=== PATIENT | female | born 1985 | race Caucasian/White ===

== ENCOUNTER 2016-06-05 04:51 | Emergency (ER) | payer MEDICAID ==
[~2016-06-05] VITALS: Ht 157.5 cm; Wt 53.0 kg
[2016-06-05 04:57] VITALS: Ht 157.5 cm; Wt 53.0 kg
[2016-06-05] MEDS ORDERED: SOD CHLORIDE 0.9% 1,000 ML IV STA (06:54)
[2016-06-05] MEDS ORDERED: CLINDAMYCIN 600 MG/D5W (PMX) 50 ML IVPB SCH (07:00)
[2016-06-05 07:33] LABS: BASOPHIL # 0.2 10^3/ul (0.0-0.1); BASOPHILS % 1.1 % (0.0-2.0); EOSINOPHILS # 0.3 10^3/ul (0.0-0.5); EOSINOPHILS % 1.5 % (0.0-7.0); HEMATOCRIT 40.4 % (37.0-47.0); HEMOGLOBIN 13.5 g/dl (12.0-16.0); LYMPHOCYTES # 1.2 10^3/ul (0.8-2.9); LYMPHOCYTES % 6.1 % (15.0-51.0); MEAN CORPUSCULAR HEMOGLOBIN 28.5 pg (29.0-33.0); MEAN CORPUSCULAR HGB CONC 33.4 g/dl (32.0-37.0); MEAN CORPUSCULAR VOLUME 85.3 fl (82.0-101.0); MEAN PLATELET VOLUME 7.8 fl (7.4-10.4); NEUTROPHIL # 16.7 10^3/ul (1.6-7.5); NEUTROPHILS % 86.3 % (39.0-77.0); PLATELET COUNT 299 10^3/UL (140-440); RED BLOOD COUNT 4.73 10^6/ul (4.20-5.40); RED CELL DISTRIBUTION WIDTH 13.7 % (11.5-14.5); UNCORRECTED WBC 19.4 10^3/ul (4.8-10.8); WHITE BLOOD COUNT 19.4 10^3/ul (4.8-10.8)
[2016-06-05 07:38] LABS: CONDITION 1; SUSPECT 1
[2016-06-05 07:39] LABS: LH ANALYZER COMMENTS 1
[2016-06-05 07:40] LABS: ALBUMIN 3.9 g/dl (3.3-4.9); POTASSIUM 4.6 mmol/L (3.5-5.1)
[2016-06-05 07:42] LABS: CREATININE 0.74 mg/dl (0.44-1.00)
[2016-06-05 07:43] LABS: ALBUMIN/GLOBULIN RATIO 1.14; CALCIUM 8.9 mg/dl (8.4-10.2); TOTAL PROTEIN 7.3 g/dl (6.1-8.1)
[2016-06-05 07:55] LABS: URINE BLOOD (Dip) POC Negative (NEGATIVE)
[2016-06-05] MEDS ORDERED: IOHEXOL 300MG/ML 150 ML BTL ONE (07:56)
[2016-06-05] MEDS ORDERED: SOD CHLORIDE 0.9% 100 ML ONE (07:56)
--- NOTE | 2016-06-05 08:34 | RADRPT ---
PROCEDURE: CT facial bones with contrast CLINICAL INDICATION: Abscess, pain TECHNIQUE: A CT of the facial bones was performed on a multidetector CT scanner utilizing thin axi al images after the intravenous administration of 100 cc Isovue contrast. No reported complication. Sagittal and coronal reconstructions were provided. The CTDIvol is 54 mGy and the DLP is 1080mGy- cm. One or more of the following dose reduction techniques were used: Automated exposure control, Ad justment of the mA and/or kV according to patient size, and/or use of iterative reconstruction techn ique. COMPARISON: None available. FINDINGS: Left malar and buccal space inflammatory stranding. There is associated thickening of the left platy sma. No well-defined, drainable rim enhancing fluid collection identified. Multiple enlarged left s ubmandibular space and left upper cervical lymph nodes are identified and likely reactive. No gross evidence of intra orbital involvement. Scattered paranasal sinus mucosal thickening is seen without evidence of layering sinus fluid. IMPRESSION: Left malar and buccal space inflammatory stranding without evidence of a well-defined, drainable abs cess. The findings are compatible with a cellulitis. Prominent left submandibular and left upper c ervical lymph nodes are likely reactive. RPTAT: AA .Jed Negron MD, MD Date Time Electronically viewed and signed by .Jed Negron MD, on 06/05/2016 08:34 .T/
[2016-06-05] MEDS ORDERED: CLIN-73 PO (08:44)
[2016-06-05 08:45] VITALS: BP 120/71; PULSE 85; RESP 16; TEMP 98.9
--- NOTE | 2016-06-05 10:41 | ERD ---
DATE OF SERVICE: HISTORY OF PRESENT ILLNESS: The patient is a 31-year-old female complaining of an abscess and swell ing to her left cheek. She says it has been going on for the last 5 days. She has no pain with eye movement. She has been trying to open the site and drain it herself. She has removed purulence fro m the cheek. She has been taking Tylenol and meloxicam. Last medications were taken yesterday. No medications today. No fevers. She has had no trouble swallowing or breathing. She has never had anything like this happen before. PAST MEDICAL HISTORY: Denies medical problems. SURGICAL HISTORY: Tubal ligations. SOCIAL HISTORY: She smokes a half a pack a day. ALLERGIES: DENIES ALLERGIES TO MEDICATIONS. REVIEW OF SYSTEMS: A 12-point review of systems was done. Refer to HPI for positives, all other sy stems are negative. PHYSICAL EXAMINATION: VITAL SIGNS: Temperature is 98.9, pulse 84, blood pressure is 104/59, respiratory rate 16, O2 satur ation 98% on room air. Pain intensity is 8/10. GENERAL: The patient is well-appearing, well-nourished, in no acute distress. HEENT: Atraumatic. Conjunctivae are pink. Pupils equal, round, and reactive to light. There is no s cleral icterus. Tympanic membranes clear bilaterally. Oropharynx clear. No nystagmus or photophobia . CHEST: Clear to auscultation bilaterally. There are no rales, wheezes or rhonchi. HEART: Regular rate and rhythm. No murmurs, clicks, rubs or gallops. No S3 or S4. ABDOMEN: Soft, nontender and nondistended. Good bowel sounds. No rebound or guarding. No gross bruce tonitis. No gross organomegaly or masses. No Jane sign or McBurney point tenderness. SKIN: There is extensive swelling noted to the left cheek. No dental pain. There is induration, bu t no fluctuance felt on exam. There is a small size pimple noted on the cheek. EMERGENCY ROOM COURSE: The patient had blood work done in the ER. CBC showed a white count of 19.4 , with a shift of 86.3. CMP was within normal limits. The patient's urine was negative. The patie nt was given a liter of normal saline and IV 600 mg of clindamycin. The patient also had a CT face with contrast that showed left malar and buccal space inflammatory stranding, without evidence of we ll-defined drainable abscess. Findings are compatible with cellulitis. Prominent left submandibula r and left upper cervical lymph nodes are likely reactive. This case was reviewed with Dr. Keith rodriguez to discharge. DIAGNOSIS: Facial cellulitis. MEDICAL DECISION MAKING: I have a low suspicion for periorbital or orbital cellulitis. There is no involvement of the eye and the patient does not have pain with ocular movements. I have a low susp icion for impingement on the oropharynx, as the patient is breathing normally and vital signs are st able. I did not feel there is indication for admission or IV antibiotics. Continue IV antibiotics. The patient is stable for discharge, with close followup, as there is no sign of drainable abscess noted on exam. DISCHARGE: The patient was discharged stable. The patient was given a prescription for clindamycin and told to return in 2 days or sooner if symptoms progress or worsen. The patient was given stric t ER precautions. All other questions were answered at the time of discharge. Discharge summary wa s given at the time of departure. Patient understood and complied with the plan. Dictated By: DEE SPENCER for AMY PEREZ/JOSE DAVID Conf#: [id number] DID#: [id number]
== END 2016-06-05 08:55 | disposition home or self-care (01) ==
LOC: FTE 04:51
DX: L03.211 Cellulitis of face (principal); F17.210 Nicotine dependence, cigarettes, uncomplicated; J45.909 Unspecified asthma, uncomplicated
CPT/HCPCS: 36415; 70486; 80053; 81003; 85025; 87040; 96374; J7030; Q9967; Z7502; Z7610

== ENCOUNTER 2016-08-27 06:13 | Emergency (ER) | payer MEDICAID ==
[~2016-08-27] VITALS: Ht 162.6 cm; Wt 55.5 kg
[~2016-08-27 06:13] MED LIST: CLIN-73 PO
[2016-08-27 06:16] VITALS: Ht 162.6 cm; Wt 55.5 kg
[2016-08-27] MEDS ORDERED: CEPH-443 PO (06:31)
[2016-08-27] MEDS ORDERED: HYDR-906 PO (06:31)
[2016-08-27] MEDS ORDERED: SULF1TAB31 PO (06:31)
--- NOTE | 2016-08-27 06:36 | ERD ---
ER Documentation Chief Complaint Date/Time DATE: 08/27/16 TIME: 06:33 Chief Complaint abscess left shoulder HPI This is a 31-year-old female presenting to the emergency department complaining of a ~3cm x 3cm, abscess on the left posterior back for the past 1 week. Patient states that it has been getting worse and painful. She rates the pain 10 out of 10, describes it as aching and throbbing. Patient denies any fevers. She denies taking any medications for this. Patient has been here in the past for facial cellulitis. She denies any drug ROS All systems reviewed and are negative except as per history of present illness. Medications Home Meds Active Scripts Hydrocodone/Acetaminophen (Normangee 5-325 Tablet) 1 Each Tablet, 1 EACH PO Q6 Y for PAIN AND OR ELEVATED TEMP, #14 TAB Prov:SHAYY BERRIOS PA-C 08/27/16 Sulfamethoxazole/Trimethoprim* (Bactrim Ds* Tablet) 1 Each Tablet, 1 TAB PO BID for 10 Days, TAB Prov:SHAYY BERRIOS PA-C 08/27/16 Cephalexin* (Keflex*) 500 Mg Capsule, 500 MG PO QID for 10 Days, CAP Prov:SHAYY BERRIOS PA-C 08/27/16 Clindamycin Hcl* (Clindamycin Hcl*) 300 Mg Capsule, 300 MG PO TID for 10 Days, CAP Prov:CHUY INIGUEZ PA-C 06/05/16 Allergies Allergies: Coded Allergies: No Known Allergy (Unverified , 08/27/16) PMhx/Soc History of Surgery: Yes (TUBAL LIGATION) Anesthesia Reaction: No Hx Neurological Disorder: No Hx Respiratory Disorders: Yes (ASTHMA) Hx Cardiac Disorders: No Hx Psychiatric Problems: No Hx Miscellaneous Medical Probl: No Hx Alcohol Use: No Hx Substance Use: No Hx Tobacco Use: No Smoking Status: Current every day smoker Physical Exam Vitals Vital Signs Date Time Temp Pulse Resp B/P Pulse Ox O2 Delivery O2 Flow Rate FiO2 08/27/16 06:16 97.5 95 20 117/72 99 Physical Exam General: WD/WN, in no apparent distress, non-toxic appearing HENT: NC/AT Eyes: Conjunctiva normal Neck: Supple Pulm: Clear to auscultation, normal labored breathing; no wheezing/rales/ rhonchi heard CV: Good capillary refill GI: Non-distended, no guarding Back: No masses Ext: No clubbing, cyanosis, or edema Neuro: Moves on all fours Skin: Approximately 3 x 3 cm indurated erythematous warm papule on the left posterior back -borders were marked with the skin marker Normal turgor, color, and temperature. No ulcerations or rashes noted. Psych: Normal mood Procedures/MDM This is a 31-year-old female presenting to the emergency department complaining of a ~3cm x 3cm, abscess on the left posterior back for the past 1 week. On examination it was indurated and more cellulitic and I do not believe that an incision and drainage is suitable, in addition patient refused to want to get incision and drainage due to needles. There was no evidence of lymphangitis or osteomyelitis. No evidence of bacteremia. Patient has stable vital signs and appears well afebrile. Prescription for Keflex and Bactrim was given to her for the next 10 days, I discussed return to the emergency department in 2 days for a wound check. A prescription of Normangee was also given for pain. Patient stable for discharge with precautions to return. She understands and agrees with this plan Departure Diagnosis: Primary Impression: Abscess or cellulitis of back Condition: Stable Patient Instructions: Cellulitis, Abscess, Antiobiotic Treatment Only Additional Instructions: Take all medicines as directed. Return to this facility in 2 DAYS for a follow-up exam.Return sooner if your condition worsens. Return to this facility if you are not improving as expected. You have been given a medicine NORCO which may cause drowsiness.DO NOT DRIVE OR OPERATE DANGEROUS MACHINERY while taking this medicine! SHAYY BERRIOS PA-C Aug 27, 2016 06:36
== END 2016-08-27 06:36 | disposition home or self-care (01) ==
LOC: FTE 06:13
DX: L02.212 Cutaneous abscess of back [any part, except buttock and flank] (principal); J45.909 Unspecified asthma, uncomplicated; F17.210 Nicotine dependence, cigarettes, uncomplicated
CPT/HCPCS: 99284

== ENCOUNTER 2016-08-30 14:52 | Emergency (ER) | payer MEDICAID ==
[~2016-08-30] VITALS: Wt 61.0 kg
[~2016-08-30 14:52] MED LIST changes: +CEPH-443 PO; +HYDR-906 PO; +SULF1TAB31 PO
[2016-08-30] MEDS ORDERED: LIDOCAINE 1%/EPI 30 ML INJ INJ STA (16:32)
[2016-08-30] MEDS ORDERED: LIDOCAINE 2%/EPI (MDV) 20ML INJ INJ STA (16:38)
--- NOTE | 2016-08-30 17:11 | ERD ---
ER Documentation Chief Complaint Date/Time DATE: 08/30/16 TIME: 17:05 Chief Complaint ABSCESS TO LEFT UPPER BACK HPI This is a 31-year-old female presenting to the emergency department with an abscess to her left upper back for the past 3 days. Patient was seen here 3 days ago and refused to get an incision drainage and was given antibiotics. Patient states that it started draining and she would like a wound check. Patient states that it has been improving, she denies any fevers. She states pain is moderate in severity and localized ROS All systems reviewed and are negative except as per history of present illness. Medications Home Meds Active Scripts Hydrocodone/Acetaminophen (Vardaman 5-325 Tablet) 1 Each Tablet, 1 EACH PO Q6 Y for PAIN AND OR ELEVATED TEMP, #14 TAB Prov:SHAYY BERRIOS PA-C 08/27/16 Sulfamethoxazole/Trimethoprim* (Bactrim Ds* Tablet) 1 Each Tablet, 1 TAB PO BID for 10 Days, TAB Prov:SHAYY BERRIOS PA-C 08/27/16 Cephalexin* (Keflex*) 500 Mg Capsule, 500 MG PO QID for 10 Days, CAP Prov:SHAYY BERRIOS PA-C 08/27/16 Clindamycin Hcl* (Clindamycin Hcl*) 300 Mg Capsule, 300 MG PO TID for 10 Days, CAP Prov:CHUY INIGUEZ PA-C 06/05/16 Allergies Allergies: Coded Allergies: No Known Allergy (Unverified , 08/27/16) PMhx/Soc Medical and Surgical Hx: pt denies Surgical Hx History of Surgery: No Anesthesia Reaction: No Hx Neurological Disorder: No Hx Respiratory Disorders: Yes (asthma) Hx Cardiac Disorders: No Hx Psychiatric Problems: Yes (anxiety) Hx Miscellaneous Medical Probl: No Hx Alcohol Use: Yes (social) Hx Substance Use: Yes (weed) Hx Tobacco Use: No Smoking Status: Never smoker Physical Exam Vitals Vital Signs Date Time Temp Pulse Resp B/P Pulse Ox O2 Delivery O2 Flow Rate FiO2 08/30/16 15:27 98.5 101 18 122/58 99 Physical Exam General: WD/WN, in no apparent distress, non-toxic appearing HENT: NC/AT Eyes: Conjunctiva normal Neck: Supple Pulm: Clear to auscultation, normal labored breathing; no wheezing/rales/ rhonchi heard CV: Good capillary refill GI: Non-distended, no guarding Back: No masses Ext: No clubbing, cyanosis, or edema Neuro: Moves on all fours Skin: 3 x 3 erythematous papule with evidence of hard exudates and drainage Psych: Normal mood Results 24 hrs Current Medications Medications (Trade) Dose Ordered Sig/[place] Route PRN Reason Start Time Stop Time Status Last Admin Dose Admin Lidocaine/ Epinephrine (Xylocaine 1%/ Epi) 30 ml ONCE STAT INJ 08/30/16 16:32 08/30/16 16:39 DC Lidocaine/ Epinephrine (Xylocaine 2%/ Epi (Mdv) 20 ml) 20 ml ONCE STAT INJ 08/30/16 16:38 08/30/16 16:39 DC 08/30/16 16:46 Procedures/MDM This is a 31-year-old female presenting to the emergency department with an abscess on the left upper back who I have seen a few days ago. Patient refused to get an incision and drainage a few days ago, her abscess has started to drain on its own. Abscess is improving and is appropriate for wound debridement. In the ED I have cleansed the region with Betadine, approximately 5 cc of 2% lidocaine with epinephrine was used to anesthetize the area, I have removed a hard exudate and copious amount of normal saline fluid was used for irrigation. Xeroform was applied and sterile dressing. I discussed with patient to continue her antibiotics and return in 2 days for another wound check. Patient is hematuria stable for discharge with precautions to return to the ER for any worsening signs or symptoms. She understands and agrees with this plan Departure Diagnosis: Primary Impression: Abscess Condition: Stable Patient Instructions: Abscess, Antiobiotic Treatment Only, Abscess, Incision And Drainage Referrals: NO PRIMARY,CARE PHYSICIAN (PCP) Additional Instructions: Return to this facility in 2 DAYS for a follow-up exam.Return sooner if your condition worsens. Follow up in 2 days in your clinic for wound check. Take all medicines as directed. SHAYY BERRIOS PA-C Aug 30, 2016 17:10
== END 2016-08-30 17:31 | disposition home or self-care (01) ==
LOC: FTE 14:52
DX: L02.212 Cutaneous abscess of back [any part, except buttock and flank] (principal); J45.909 Unspecified asthma, uncomplicated
CPT/HCPCS: Z7502; Z7610; 99284